=== PATIENT | female | born 2000 | race Two or more races ===

== ENCOUNTER 2022-09-04 19:05 | Inpatient (IN) | payer OTHER ==
[~2022-09-04] VITALS: Ht 152.4 cm; Wt 68.0 kg
[2022-09-04] MEDS ORDERED: PRENATA CHEWAB1 EACH PO (19:15)
[2022-09-04] MEDS ORDERED: IRON325 MG PO (19:15)
[2022-09-07] MEDS ORDERED: IBUPROFEN800 MG PO (06:57)
== END 2022-09-07 14:17 | disposition home or self-care (01) | DRG 788 ==
LOC: LDR 19:05 → O/R 19:05 → OB/GYN 09-05 09:32
PROVIDERS: ADMIT Specialist; ATTEND Specialist
PROC: 4A1HXCZ Monitoring of Products of Conception, Cardiac Rate, External Approach (ICD-10-PCS; 2022-09-04)
PROC: 10D00Z1 Extraction of Products of Conception, Low, Open Approach (ICD-10-PCS; principal; 2022-09-05 07:00)
DX: O33.8 Maternal care for disproportion of other origin (principal); Z3A.38 38 weeks gestation of pregnancy; Z37.0 Single live birth; Z20.822 Contact with and (suspected) exposure to COVID-19